=== PATIENT | female | born 1990 | race Caucasian/White ===

== ENCOUNTER 2017-10-15 12:18 | Emergency (ER) | payer MEDICAID, OTHER, SELFPAY ==
[~2017-10-15] VITALS: Ht 162.6 cm; Wt 70.0 kg
[2017-10-15] MEDS ORDERED: SODIUM CHLORIDE 0.9% 1,000 ML IV ONE (12:23)
[2017-10-15] MEDS ORDERED: SODIUM CHLORIDE FLUSH 10ML SYR IVF ONE (12:30)
[2017-10-15] MEDS ORDERED: KETOROLAC 30 MG/1 ML IVPush ONE (12:30)
[2017-10-15] MEDS ORDERED: PLEASE ENTER HEIGHT AND WEIGHT MC SCH (12:30)
[2017-10-15] MEDS ORDERED: ONDANSETRON 2MG/ML, 2ML IVPush ONE (12:30)
[2017-10-15] MEDS ORDERED: PLEASE ENTER ALLERGIES MC SCH ×2 (12:30)
[2017-10-15] MEDS ORDERED: KETOROLAC 30 MG/1 ML ONE (12:33)
[2017-10-15 12:44] LABS: HEMATOCRIT 34.5 % (34.6-47.8); HEMOGLOBIN 11.8 g/dL (11.7-16.4); WHITE BLOOD COUNT 3.8 x10^3/uL (3.4-10)
[2017-10-15 12:55] LABS: ASPARTATE AMINO TRANSFERASE 10 U/L (15-37); BLOOD UREA NITROGEN 8 mg/dL (7-18)
[2017-10-15] MEDS ORDERED: HYDROmorphone 2 MG/ML, 1ML IVPush ONE (14:30)
[2017-10-15] MEDS ORDERED: ONDANSETRON 2MG/ML, 2ML ONE (14:31)
[2017-10-15] MEDS ORDERED: HYDROmorphone 1 MG/ML, 1ML ONE (14:32)
[2017-10-15] MEDS ORDERED: DIAZEPAM 5 MG/ML, 2ML IVPush ONE (15:00)
[2017-10-15 16:29] LABS: PATH.CAST-FLAG NOT PRESENT; SPERM-FLAG NOT PRESENT; SRC-FLAG NOT PRESENT; XTAL-FLAG NOT PRESENT; YLC-FLAG NOT PRESENT
[2017-10-15 17:34] VITALS: BP 110/60
== END 2017-10-15 17:39 | disposition home or self-care (01) ==
LOC: ED 14:19
DX: M54.5 Low back pain (principal); M54.6 Pain in thoracic spine
CPT/HCPCS: 36415; 74176; 80053; 81001; 84703; 85025; 87086; 96361; 96374; 96375; 99285; J1170; J1885; J2405; J7030

== ENCOUNTER 2019-12-15 11:32 | Emergency (ER) | payer OTHER ==
[~2019-12-15] VITALS: Ht 162.6 cm; Wt 61.5 kg
[2019-12-15 12:02] VITALS: BP 116/43
[2019-12-15] MEDS ORDERED: HYDROcodone/APAP 5/325 TABLET ONE (12:27)
[2019-12-15] MEDS ORDERED: HYDROcodone/APAP 5/325 TABLET PO ONE (12:30)
--- NOTE | 2019-12-15 13:12 | NUR ---
Patient/Caregiver given discharge instructions and they have confirmed that they understand the instructions. Patient ambulatory with steady gait. PT LEFT WITH ALL PERSONAL BELONGINGS.
== END 2019-12-15 13:14 | disposition home or self-care (01) ==
LOC: ED 12:55
DX: S50.12XA Contusion of left forearm, initial encounter (principal); V49.9XXA Car occupant (driver) (passenger) injured in unspecified traffic accident, initial encounter; Y93.89 Activity, other specified; Y92.89 Other specified places as the place of occurrence of the external cause; Y99.8 Other external cause status
CPT/HCPCS: 99283